=== PATIENT | female | born 1935 | race Caucasian/White ===

== ENCOUNTER → 2016-10-25 | Day surgery (SDC) | payer MEDICARE, OTHER ==
[~2016-10-25] VITALS: Ht 152.4 cm; Wt 60.0 kg
[~2016-10-25] MED LIST: ALIGN4 MG PO; ASPIRIN EC81 MG PO; ATACAND16 MG PO; BONIVA150 MG PO; CITRACAL + D M1 EACH PO; CRESTOR10 MG PO; DURAGESIC 25MC25 MCG TOP; LEVOTHROID(SYN75 MCG PO; ONE DAILY COMP1 EAC1 PO; ROXICODONE 5MG (5 MG PO; TOPROL XL25 MG PO; XANAX0.25 MG PO; ZOFRAN4 M1 PO
== END | disposition disaster alternative care site (69) ==
LOC: GPOC 10-24 13:00 → GEND 08:52 → GPOC 09:00
PROC: 3E0G8GC Introduction of Other Therapeutic Substance into Upper GI, Via Natural or Artificial Opening Endoscopic (ICD-10-PCS; principal; 2016-10-25)
PROC: 0DB68ZX Excision of Stomach, Via Natural or Artificial Opening Endoscopic, Diagnostic (ICD-10-PCS; 2016-10-25)
DX: K22.8 Other specified diseases of esophagus (principal); K29.80 Duodenitis without bleeding; M19.90 Unspecified osteoarthritis, unspecified site; K21.9 Gastro-esophageal reflux disease without esophagitis; F41.9 Anxiety disorder, unspecified; E78.00 Pure hypercholesterolemia, unspecified; I10 Essential (primary) hypertension; Z90.49 Acquired absence of other specified parts of digestive tract; Z98.41 Cataract extraction status, right eye; Z90.721 Acquired absence of ovaries, unilateral; Z79.82 Long term (current) use of aspirin; Z79.899 Other long term (current) drug therapy; Z91.018 Allergy to other foods; Z88.1 Allergy status to other antibiotic agents; Z88.6 Allergy status to analgesic agent
CPT/HCPCS: J0585; J2001; J7030